=== PATIENT | female | born 1930 | race African-American/Black ===

== ENCOUNTER 2016-09-11 17:09 | Emergency (ER) | payer MEDICARE ==
--- NOTE | ~2016-09-11 | CT71 ---
[facility] A Service of [facility] RADIOLOGY TEXT RESULTS PATIENT: TORRES VIEIRA LOCATION: SED : 32 UNIT #: [id number] AGE: [address]: BETSEY CHAIDEZ SEX: F ORDER DR: [id number] [place] [id number] E MR#: [id number] Acc #: [id number] NAME: TORRES VIEIRA : 1930 SEX: F STUDY DATE/TIME: 09/11/2016 19:23 UNIT: SED ROOM: STUDY DESCRIPTION: CT Head Wo Contrast Attending Physician: Betsey Chaidez Ordering Physician: Betsey Chaidez MEDICAL IMAGING REPORT This report is preliminary unless electronic signature is present. EXAM CT brain without contrast HISTORY Dizzy today TECHNIQUE This CT exam was performed with one or more of the following radiation dose reduction techniques: automatic exposure control, adjustment of mA and/or kV according to patient size, and iterative reconst FINDINGS CT brain without contrast demonstrates no intracranial hemorrhage, mass or edema. No midline shift or ventricular dilatation or extraaxial fluid collection. [id number] chronic ischemic changes in the deep white matter bilaterally. IMPRESSION No acute findings. 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 Dictated by... Antwon Franklin M.D. THIS IS AN ELECTRONICALLY VERIFIED REPORT Antwon Franklin M.D. at 09/12/2016 11:02 PM JESSICA/laura TD: 09/12/2016 08:02 JOB #: [id number] [facility] A Service of [facility] RADIOLOGY TEXT RESULTS PATIENT: TORRES VIEIRA LOCATION: SED : 31 UNIT #: [id number] AGE: [address]: BETSEY CHAIDEZ SEX: F ORDER DR: MEDICAL IMAGING REPORT Page 1 of 1
--- NOTE | ~2016-09-11 | EKG ---
PATIENT: TORRES VIEIRA UNIT #: [id number] Ventricular Rate: 68 BPM Atrial Rate: 68 BPM P-R Interval: 168 ms QRS Duration: 104 ms Q-T Interval: 426 ms QTC Calculation(Bezet): 452 ms P Greenback: 61 degrees Calculated R Greenback: -12 degrees Calculated T Greenback: 27 degrees Diagnosis Line: Normal sinus rhythm Diagnosis Line: Possible Left atrial enlargement Diagnosis Line: Anteroseptal infarct (cited on or before Diagnosis Line: 27-SEP-2011) Diagnosis Line: Abnormal ECG Diagnosis Line: When compared with ECG of 27-SEP-2011 15:24, Diagnosis Line: Questionable change in initial forces of Anterior Diagnosis Line: leads Diagnosis Line: Confirmed by BUSTER BRENNAN MD ([id number]) on Diagnosis Line: 09/12/2016 12:45:25 PM INTERPRETING MD: ANU FOX
[2016-09-11] MEDS ORDERED: SINGULAIR (17:24)
[2016-09-11] MEDS ORDERED: EXFORGE 10-1601 EACH (17:24)
[2016-09-11] MEDS ORDERED: TOPROL XL (17:24)
[2016-09-11] MEDS ORDERED: REMERON (17:24)
[2016-09-11] MEDS ORDERED: ALLEGRA (17:24)
[2016-09-11] MEDS ORDERED: LINZESS72 MCG (17:24)
[2016-09-11] MEDS ORDERED: ASPIRIN81 M2 (17:24)
[2016-09-11 19:11] LABS: URINE SOURCE CLEAN CATCH
[2016-09-11 19:15] LABS: URINE APPEARANCE CLEAR; URINE BILIRUBIN NEG (NEG); URINE BLOOD NEG (NEG); URINE COLOR YELLOW; URINE GLUCOSE 100 MG/DL (NORM); URINE KETONE NEG (NEG); URINE LEUKOCYTE ESTERASE NEG (NEG); URINE NITRATE NEG (NEG); URINE PROTEIN NEG (NEG); URINE UROBILINOGEN 0.2 MG/DL (NORM)
[2016-09-11 19:18] LABS: BASOPHIL% 0.4 % (0-2.5); EOSINOPHIL# 0.1 X10e3 (0-0.7); EOSINOPHIL% 0.5 % (0.0-7.0); HEMATOCRIT 38.8 % (35.0-45.0); HEMOGLOBIN 12.5 gm/dL (12.0-16.0); LYMPHOCYTE# 1.3 X10e3 (1.0-3.5); LYMPHOCYTE% 11.9 % (17.0-45.0); MEAN CELL VOLUME 89.7 FL (83-96); MEAN CORPUSCULAR HEMOGLOBIN 28.9 PG (28-34); MEAN CORPUSCULAR HGB CONC 32.2 g/dL (30-36); MEAN PLATELET VOLUME 11.3 FL (6.5-11.5); MONOCYTE# 0.5 X10e3 (0-1.0); MONOCYTE% 4.3 % (3.0-12.0); NEUTROPHIL# 9.4 X10e3 (1.5-7.1); NEUTROPHIL% 82.9 % (40-75); PLATELET COUNT 210 X10e3 (140-420); RED BLOOD COUNT 4.33 X10e (3.90-5.30); WHITE BLOOD COUNT 11.3 X10e3 (4.0-10.5)
[2016-09-11 19:21] LABS: DIFF IND NO; MICRO INDICATED? NO
[2016-09-11 19:24] LABS: POC - CKMB 3.2 ng/mL (0.0-7.9); POC - TROPONIN <0.05 ng/mL (<=0.05)
[2016-09-11 19:34] LABS: BILIRUBIN, DIRECT 0.1 mg/dL (0.0-0.2); BILIRUBIN,INDIRECT 0.4 mg/dL (0.0-0.9); BILIRUBIN,TOTAL 0.5 mg/dL (0.2-2.0); CREATININE SERUM 0.8 mg/dL (0.6-1.4); POTASSIUM 4.2 mmol/L (3.5-5.1); PROTEIN TOTAL SERUM 7.5 g/dL (6.0-8.3)
== END 2016-09-11 21:28 | disposition home or self-care (01) ==
LOC: SED 17:09 → EDBD 17:09 → SED 18:48
PROVIDERS: Physician Assistant
DX: E11.65 Type 2 diabetes mellitus with hyperglycemia (principal); I10 Essential (primary) hypertension; Z90.49 Acquired absence of other specified parts of digestive tract; Z90.710 Acquired absence of both cervix and uterus; Z88.2 Allergy status to sulfonamides
CPT/HCPCS: 36415; 70450; 80048; 80076; 81003; 82553; 82947; 84484; 85025; 93005; 99285